=== PATIENT | female | born 1965 | race Caucasian/White ===

== ENCOUNTER 2017-08-11 02:48 | Emergency (ER) | payer BC ==
[2017-08-11 03:00] VITALS: BP 139/88
--- NOTE | 2017-08-11 03:40 | EDM.PDOC ---
ED HPI GENERAL MEDICAL PROBLEM - General Chief Complaint: Abdominal Pain Stated Complaint: UPPER ABD PAIN Time Seen by Provider: 08/11/17 03:27 Source of Information: Reports: Patient History Limitations: Reports: Respiratory Distress - History of Present Illness INITIAL COMMENTS - FREE TEXT/NARRATIVE: 52-year-old female presents emergency department day complaint of abdominal pain , she states the pain started this evening it was very intense rates it a 10 out of 10 in epigastric region constant however now the pain has subsided she recently underwent CAT scan approximately 6 days ago which was fairly benign showed some punctate renal stones in the right pole of the kidney otherwise nothing remarkable except for large amount stool, she denies any fever no other symptoms at this time she feels she has returned to baseline and she is pain- free Upper Abdominal Pain Score (Numeric/FACES): 10 - Related Data Allergies Allergy/AdvReac Type Severity Reaction Status Date / Time chlorzoxazone Allergy Hives Verified 08/11/17 02:54 [From Parafon Forte] ciprofloxacin Allergy Swollen Verified 08/11/17 02:54 Eyes metronidazole Allergy Other Verified 08/11/17 02:54 Home Meds: Home Meds Cyclobenzaprine [Flexeril] 2.5 mg PO BEDTIME 06/24/17 [History] Levonorgestrel [Mirena] 1 each IY ASDIRECTED 06/24/17 [History] Phenazopyridine HCl [Phenazopyridine HCl] 200 mg PO ASDIRECTED 08/11/17 [History ] Past Medical History Gastrointestinal History: Reports: Irritable Bowel Syndrome Genitourinary History: Reports: Renal Calculus 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: Dysfunctional Uterine Bleeding, Endometrial Ablation, Fibroids Neurological History: Reports: Migraines Psychiatric History: Reports: Anxiety Dermatologic History: Reports: Psoriasis Other Dermatologic History: rash on arms itches fine pink - Infectious Disease History Infectious Disease History: Reports: Chicken Pox - Past Surgical History Female Surgical History: Reports: Section, Endometrial Ablation, Kidney stone extraction Social & Family History - Tobacco Use Smoking Status *Q: Former Smoker Used Tobacco, but Quit: Yes Month Tobacco Last Used: 6 yrs ago Second Hand Smoke Exposure: No - Caffeine Use Caffeine Use: Reports: Coffee - Alcohol Use Days Per Week of Alcohol Use: 0 - Recreational Drug Use Recreational Drug Use: No ED ROS GENERAL - Review of Systems Review Of Systems: See Below Constitutional: Reports: No Symptoms HEENT: Reports: No Symptoms Respiratory: Reports: No Symptoms Cardiovascular: Reports: No Symptoms GI/Abdominal: Reports: Abdominal Pain, Constipation. Denies: Nausea, Vomiting : Reports: No Symptoms Musculoskeletal: Reports: No Symptoms Skin: Reports: No Symptoms ED EXAM, GI/ABD - Physical Exam Exam: See Below Exam Limited By: No Limitations General Appearance: Alert, WD/WN, No Apparent Distress Respiratory/Chest: No Respiratory Distress GI/Abdominal Exam: Normal Bowel Sounds, Soft, Non-Tender, No Organomegaly, No Distention, No Abnormal Bruit, No Mass Course - Vital Signs Last Recorded V/S: Last Vital Signs Temp 97.5 F 08/11/17 03:01 Pulse 83 08/11/17 03:01 Resp 20 08/11/17 03:01 BP 139/88 08/11/17 03:01 Pulse Ox 100 08/11/17 03:01 - Orders/Labs/Meds Orders: Active Orders 24 hr Category Date Time Status Abdomen 1V Flat [CR] Stat Exams 08/11/17 03:33 Taken Departure - Departure Time of Disposition: 04:06 Disposition: Home, Self-Care 01 Condition: Good Clinical Impression: Functional constipation - Discharge Information Referrals: Tai Weems MD [Primary Care Provider] - Forms: ED Department Discharge Additional Instructions: Try the colonoscopy prep, Please followup with your primary care provider in 3- 5 days if not better, please call return to the emergency department with worsening of symptoms. - My Orders Last 24 Hours: My Active Orders 08/11/17 03:33 Abdomen 1V Flat [CR] Stat - Assessment/Plan Last 24 Hours: My Active Orders 08/11/17 03:33 Abdomen 1V Flat [CR] Stat Plan: Assessment Acuity = acute Site and laterality = functional constipation Etiology = probably related to recent change in diet Manifestations = intermittent abdominal pain Location of injury = Home Lab values = plain film the abdomen does show large amount stool left side official read radiology pending Plan I did review films with her she has been asymptomatic for the last hour plan is to do the colonoscopy prep she'll follow up with her primary care in 3-5 days if no improvement Patient was in agreement with the plan all questions were answered, they were instructed to return to the emergency department or call for worsening symptoms. This note was dictated using [employer] voice recognition software please call with any questions.
--- NOTE | 2017-08-11 09:36 | CR ---
Supine abdomen There is mild retained colonic stool in the right colon. There is no evidence for bowel distention. T here is an IUD centrally within the pelvis. No renal stones are seen. Impression: 1. No acute findings.
== END 2017-08-11 04:29 | disposition home or self-care (01) ==
LOC: JP.ED 02:48
DX: K59.04 Chronic idiopathic constipation (principal); K31.9 Disease of stomach and duodenum, unspecified; L40.9 Psoriasis, unspecified; Z87.891 Personal history of nicotine dependence; Z87.442 Personal history of urinary calculi; Z88.1 Allergy status to other antibiotic agents; Z88.8 Allergy status to other drugs, medicaments and biological substances
CPT/HCPCS: 74000; 74000-26; 99284

== ENCOUNTER 2018-01-18 08:22 | Emergency (ER) | payer BC ==
[2018-01-18 08:36] VITALS: BP 140/99
[2018-01-18] MEDS ORDERED: Lactated Ringers 1,000 ML IV ONE (09:03)
[2018-01-18] MEDS ORDERED: fentaNYL 100 MCG/2 ML SDV IVPUSH ONE ×2 (09:03→10:32)
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
[2018-01-18] MEDS ORDERED: Iopamidol 612 MG/ML 150 ML Bottle IV PRN (10:01)
[2018-01-18] MEDS ORDERED: Sodium Chloride 0.9% 10 ML Syringe FLUSH PRN (10:01)
--- NOTE | 2018-01-18 10:01 | CR ---
No evidence for fracture. No evidence for effusion.
[2018-01-18] MEDS ORDERED: Sodium Chloride 0.9% 80 ML IV SCH (10:15)
--- NOTE | 2018-01-18 10:15 | CR ---
Left elbow. Findings: Curvilinear radiopaque density at the medial epicondyle may be heterotopic ossification. No evidence for a joint effusion. No definitive fracture. Hypertrophic change at the olecranon as well. Right elbow: Tiny faint ossific density at the elbow joint anteriorly may be degenerative or tiny avu lsive fracture. There is no joint effusion however. Radial head is intact.
--- NOTE | 2018-01-18 10:29 | CT ---
CT chest, abdomen and pelvis Total DLP 957. Findings: Hazy density about the right upper chest subcutaneous tissues which can indicate bruising. Thoracic aorta is intact. No enlarged adenopathy. Mild emphysematous change. No focal consolidation. Tiny 2 mm pulmonary nodule near the right minor fissure axial image #53 series 4. Mildly atherosclerotic abdominal aorta. It is nonaneurysmal. Fatty infiltration of the liver. The chris er and spleen are intact. No focal fluid collections. Gallbladder within normal limits. Adrenal gland s are within normal limits. Pancreas within normal limits. No hydronephrosis. No evidence for renal c ontusion. No dilated loops of small bowel. I U D within the uterus. Normal appendix right lower quadr ant. No evidence for free air. No free air. No acute osseous abnormality. Bladder within normal limit s. No free fluid. Slight subcutaneous bruising about the pelvis as well. Impression: 1. Subcutaneous hazy density right upper chest. Slight subcutaneous bruising about the pelvis as well . This could indicate bruising. 2. Tiny pulmonary nodule right middle lobe. Recommend follow-up with Fleischner criteria. Fleischner Society Guidelines: Nodule Size (mm)*: Less than or equal to 4 Low Risk Patient (1): No followup needed (3) High Risk Patient (2): Followup CT at 12 months; if unchanged, no further followup (4) Nodule Size (mm)*: Greater than 4-6 Low Risk Patient (1): Followup CT at 12 months; if unchanged, no further followup (4) High Risk Patient (2): Initial followup CT at 6-12 months then at 18-24 months if no change (4) Nodule Size (mm)*: Greater than 6-8 Low Risk Patient (1): Initial followup CT at 6-12 months then at 18-24 months if no change High Risk Patient (2): Initial CT at 3-6 months then at 9-12 months and 24 months if no change Nodule Size (mm)*: Greater than 8 Low Risk Patient (1): Followup CT at around 3, 9 and 24 months, dynamic contrast-enhanced CT, PET and /or biopsy High Risk Patient (2): Same as for low risk patient (4) Note: Newly detected indeterminate nodule in persons 35 years of age or older. *Average length and width. (1) Minimal or absent history of smoking and of other known risk factors. (2) History of smoking or of other known risk factors. (3) The risk of malignancy in this category (Less than 1%) is substantially less than that in a basel ine CT scan of an asymptomatic smoker. (4) Non-solid (ground-glass) or partly solid nodules may require longer followup to exclude indolent adenocarcinoma.
--- NOTE | 2018-01-18 10:57 | CR ---
No evidence for fracture. No oblique view obtained. If symptoms persist recommend radiographic follow -up. Limitations of the scaphoid on the AP view.
== END 2018-01-18 11:49 | disposition home or self-care (01) ==
LOC: JP.ED 08:22
DX: S50.02XA Contusion of left elbow, initial encounter (principal); S50.01XA Contusion of right elbow, initial encounter; S60.212A Contusion of left wrist, initial encounter; S80.01XA Contusion of right knee, initial encounter; S30.1XXA Contusion of abdominal wall, initial encounter; Z88.1 Allergy status to other antibiotic agents; Z88.8 Allergy status to other drugs, medicaments and biological substances; Z87.891 Personal history of nicotine dependence; V49.40XA Driver injured in collision with unspecified motor vehicles in traffic accident, initial encounter
CPT/HCPCS: 36415; 71260; 73080; 73100; 73560; 74177; 80048; 85025; 96361; 96374; 96376; 99284; J3010; J7030; J7050; J7120

== ENCOUNTER 2021-09-14 22:50 | Observation (INO) | payer BC ==
[2021-09-14] MEDS ORDERED: HYDROmorphone 0.5 MG/0.5 ML Syringe IVPUSH ONE (23:19)
[2021-09-14] MEDS ORDERED: Ondansetron 4 MG/2 ML SDV IVPUSH ONE (23:19)
[2021-09-14] MEDS ORDERED: Sodium Chloride 0.9% 1,000 ML IV SCH (23:30)
--- NOTE | 2021-09-14 23:32 | EDM.PDOC ---
ED HPI GENERAL MEDICAL PROBLEM - General Chief Complaint: Abdominal Pain Stated Complaint: STOMACH PAIN Time Seen by Provider: 09/14/21 23:15 Source of Information: Reports: Patient, Family History Limitations: Reports: No Limitations - History of Present Illness INITIAL COMMENTS - FREE TEXT/NARRATIVE: 52-year-old female who who is usually generally healthy, presents with 4 hours of intense upper abdominal pain after eating. She feels bloated, has developed peritoneal irritation and the pain is 10 out of 10. There is no significant radiation to her back, no significant nausea or vomiting. She has not had this pain in the past. Her only past surgery was a section. She does have a history of H. pylori but a recent test for this was negative. She takes omepr azole for chronic reflux. Onset: Sudden Duration: Hour(s): (4 hours ago) Location: Reports: Abdomen (Upper abdomen) Severity: Severe Worsens with: Reports: Movement Associated Symptoms: Reports: No Other Symptoms Bilateral Upper Abdomen Pain Score (Numeric/FACES): 10 - Related Data Allergies Allergy/AdvReac Type Severity Reaction Status Date / Time chlorzoxazone Allergy Hives Verified 09/15/21 00:54 [From Stonebrianna Dick] ciprofloxacin Allergy Swollen Verified 09/15/21 00:54 Eyes metronidazole Allergy Other Verified 09/15/21 00:54 nickel Allergy Rash Verified 09/15/21 00:54 Home Meds: Home Meds Venlafaxine [Effexor] 225 mg PO DAILY 09/28/18 [History] Albuterol Sulfate [Proair Hfa] 1 - 2 puff INH ASDIRECTED PRN 12/29/19 [History] Amitriptyline [Elavil] 25 mg PO QPM PRN 12/29/19 [History] Fluticasone Propion/Salmeterol [Advair Hfa 230-21 Mcg Inhaler] 2 puff INH BID 12/29/19 [History] valACYclovir [Valtrex] 2,000 mg PO ASDIRECTED PRN 12/29/19 [History] Omeprazole 1 tab PO DAILY 09/14/21 [History] gemfibroziL [Gemfibrozil] 1 tab PO ACBREAKFAST 09/14/21 [History] Past Medical History Respiratory History: Reports: Asthma Gastrointestinal History: Reports: Chronic Constipation, Chronic Diarrhea, Irritable Bowel Syndrome Genitourinary History: Reports: Renal Calculus [employer] History: Reports: Dysfunctional Uterine Bleeding, Endometrial Ablation, Fibroids, Neurological History: Reports: Migraines Psychiatric History: Reports: Anxiety Dermatologic History: Reports: Psoriasis Other Dermatologic History: rash on arms itches fine pink - Infectious Disease History Infectious Disease History: Reports: Chicken Pox, Measles - Past Surgical History HEENT Surgical History: Reports: Naso-Sinus Surgery GI Surgical History: Reports: None Female Surgical History: Reports: Section, D&C, Endometrial Ablation, Kidney stone extraction, LEEP Other Female Surgeries/Procedures: uterine ablation Social & Family History - Family History HEENT: Reports: Cataract GI: Reports: Hiatal Hernia, Irritable Bowel Syndrome, Other (See Below) Other GI Family History: EGD with dil Oncologic: Reports: Bladder, Brain - Tobacco Use Tobacco Use Status *Q: Former Tobacco User Used Tobacco, but Quit: Yes Month/Year Tobacco Last Used: 10/2010 - Caffeine Use Caffeine Use: Reports: Coffee - Recreational Drug Use Recreational Drug Use: No ED ROS GENERAL - Review of Systems Review Of Systems: See Below Constitutional: Reports: Malaise. Denies: Fever, Chills HEENT: Reports: No Symptoms Respiratory: Reports: No Symptoms Cardiovascular: Reports: No Symptoms GI/Abdominal: Reports: Abdominal Pain. Denies: Constipation, Diarrhea, Vomiting : Reports: No Symptoms Skin: Reports: No Symptoms Neurological: Reports: No Symptoms Psychiatric: Reports: No Symptoms ED EXAM, GI/ABD - Physical Exam Exam: See Below Exam Limited By: No Limitations General Appearance: Alert, Severe Distress Eyes: Bilateral: Normal Appearance (No jaundice) Respiratory/Chest: No Respiratory Distress, Lungs Clear Cardiovascular: Regular Rate, Rhythm. No: Tachycardia GI/Abdominal Exam: Other (Bowel sounds are high-pitched but present, abdomen feels distended and she has intense pain to palpation across the upper and central abdomen) Extremities: Normal Inspection Neurological: Alert, Oriented Psychiatric: Anxious Skin Exam: Warm, Dry Course - Vital Signs Last Recorded V/S: Last Vital Signs Temp 95.2 F L 09/15/21 10:19 Pulse 96 09/15/21 13:00 Resp 16 09/15/21 13:00 BP 123/73 09/15/21 13:00 Pulse Ox 96 09/15/21 13:00 - Orders/Labs/Meds Orders: Active Orders 24 hr Category Date Time Status Admission Diagnosis [ADT] Routine ADT 09/15/21 00:21 Ordered Labs: Laboratory Tests 09/14/21 09/14/21 Range/Units 23:25 23:25 WBC 6.4 (4.5-11.0) K/uL RBC 4.67 (3.30-5.50) M/uL Hgb 13.3 (12.0-15.0) g/dL Hct 40.9 (36.0-48.0) % MCV 88 (80-98) fL MCH 29 (27-31) pg MCHC 33 (32-36) % Plt Count 284 (150-400) K/uL Neut % (Auto) 47.1 (36-66) % Lymph % (Auto) 40.6 (24-44) % Morris % (Auto) 6.9 H (2-6) % Eos % (Auto) 5.2 H (2-4) % Baso % (Auto) 0.2 (0-1) % Sodium 145 (140-148) mmol/L Potassium 3.9 (3.6-5.2) mmol/L Chloride 104 (100-108) mmol/L Carbon Dioxide 30 (21-32) mmol/L Anion Gap 11.5 (5.0-14.0) mmol/L BUN 18 (7-18) mg/dL Creatinine 0.9 (0.6-1.0) mg/dL Est Cr Clr Drug Dosing 69.49 mL/min Estimated GFR (MDRD) > 60 (>60) Glucose 160 H (74-106) mg/dL Calcium 9.4 (8.5-10.1) mg/dL Total Bilirubin 0.2 (0.2-1.0) mg/dL AST 26 (15-37) U/L ALT 44 (12-78) U/L Alkaline Phosphatase 62 (46-116) U/L Total Protein 7.9 (6.4-8.2) g/dL Albumin 4.4 (3.4-5.0) g/dL Globulin 3.5 (2.3-3.5) g/dL Albumin/Globulin Ratio 1.3 (1.2-2.2) Lipase 180 (73-393) U/L Meds: Medications Discontinued Medications Generic Name Dose Route Start Last Admin Trade Name Freq PRN Reason Stop Dose Admin Acetaminophen 1,000 mg 09/15/21 10:30 09/15/21 13:10 Acetaminophen 500 Mg Tab PO 09/15/21 16:31 1,000 mg Q6H BELLA Administration Acetaminophen 1,000 mg 09/15/21 22:30 Acetaminophen 500 Mg Tab PO Q6H PRN PAIN Bupivacaine HCl/Epinephrine Bitart Confirm 09/15/21 07:10 Bupivacaine 0.5%/Epinephrine 1:200,000 50 Ml Mdv Administered 09/15/21 07:11 Dose 50 ml .ROUTE .STK-MED ONE Bupivacaine HCl/Epinephrine Bitart 30 ml 09/15/21 09:23 09/15/21 09:23 Bupivacaine 0.5%/Epinephrine 1:200,000 30 Ml Sdv INJECT 09/15/21 09:24 30 ml .STK-MED ONE Administration Ropivacaine 48 ml/ 0 ml 09/15/21 08:00 09/15/21 09:22 Dexamethasone 8 mg/ NERVRT 80 syringe Epinephrine HCl 0.4 mg/ Sodium ASDIRECTED BELLA Administration Chloride 29.6 ml Dexamethasone Confirm 09/15/21 06:45 Dexamethasone 4 Mg/Ml Sdv Administered 09/15/21 06:46 Dose 4 mg .ROUTE .STK-MED ONE Fentanyl 50 mcg 09/15/21 00:49 09/15/21 01:13 Fentanyl 100 Mcg/2 Ml Sdv IVPUSH 50 mcg Q2H PRN Administration Pain (severe 7-10) Fentanyl Confirm 09/15/21 01:12 09/15/21 01:16 Fentanyl 100 Mcg/2 Ml Sdv Administered 09/15/21 01:13 Not Given Dose 100 mcg .ROUTE .STK-MED ONE Fentanyl Confirm 09/15/21 06:45 Fentanyl 250 Mcg/5 Ml Sdv Administered 09/15/21 06:46 Dose 250 mcg .ROUTE .STK-MED ONE Fentanyl Confirm 09/15/21 09:02 Fentanyl 100 Mcg/2 Ml Sdv Administered 09/15/21 09:03 Dose 100 mcg .ROUTE .STK-MED ONE Glycopyrrolate Confirm 09/15/21 06:45 Glycopyrrolate 0.2 Mg/Ml 5 Ml Mdv Administered 09/15/21 06:46 Dose 1 mg .ROUTE .STK-MED ONE Hydromorphone HCl 0.5 mg 09/14/21 23:19 09/14/21 23:32 Hydromorphone 0.5 Mg/0.5 Ml Syringe IVPUSH 09/14/21 23:20 0.5 mg ONETIME ONE Administration Hydromorphone HCl 0.5 mg 09/15/21 11:00 09/15/21 10:23 Hydromorphone 0.5 Mg/0.5 Ml Syringe IVPUSH 0.5 mg Q2H PRN Administration MODERATE PAIN Hydromorphone HCl 1 mg 09/15/21 11:00 Hydromorphone 1 Mg/Ml Syringe IV Q2H PRN SEVERE PAIN Hydromorphone HCl 2 mg 09/15/21 10:19 09/15/21 13:10 Hydromorphone 2 Mg Tab PO 2 mg Q4H PRN Administration PAIN Sodium Chloride 1,000 mls @ 500 mls/hr 09/14/21 23:30 09/14/21 23:37 Normal Saline IV 500 mls/hr ASDIRECTED BELLA Administration Ampicillin Sodium/Sulbactam 100 mls @ 200 mls/hr 09/15/21 00:52 09/15/21 01:22 Sodium 3 gm/ Sodium Chloride IV 09/15/21 01:21 200 mls/hr ONETIME ONE Administration Lactated Ringer's 1,000 mls @ 200 mls/hr 09/15/21 01:00 09/15/21 05:25 Ringers, Lactated IV 200 mls/hr ASDIRECTED BELAL Administration Ampicillin Sodium/Sulbactam 100 mls @ 200 mls/hr 09/15/21 08:00 09/15/21 08:10 Sodium 3 gm/ Sodium Chloride IV 09/15/21 08:29 200 mls/hr ONCALL ONE Administration Dextrose/Lactated Ringer's 1,000 mls @ 100 mls/hr 09/15/21 10:30 Dextrose 5%-Lactated Ringers IV ASDIRECTED BELLA Ampicillin Sodium/Sulbactam 100 mls @ 200 mls/hr 09/15/21 14:30 09/15/21 15:19 Sodium 3 gm/ Sodium Chloride IV 09/15/21 14:59 200 mls/hr ONETIME ONE Administration Ketorolac Tromethamine Confirm 09/15/21 06:45 Ketorolac 30 Mg/Ml Sdv Administered 09/15/21 06:46 Dose 30 mg .ROUTE .STK-MED ONE Ketorolac Tromethamine Confirm 09/15/21 08:54 Ketorolac 30 Mg/Ml Sdv Administered 09/15/21 08:55 Dose 30 mg .ROUTE .STK-MED ONE Metoclopramide HCl Confirm 09/14/21 23:49 09/15/21 01:07 Metoclopramide 10 Mg/2 Ml Sdv Administered 09/14/21 23:50 Not Given Dose 10 mg .ROUTE .STK-MED ONE Metoclopramide HCl 10 mg 09/14/21 23:57 09/14/21 23:59 Metoclopramide 10 Mg/2 Ml Sdv IVPUSH 09/14/21 23:58 10 mg ONETIME ONE Administration Metoclopramide HCl 5 mg 09/15/21 00:50 Metoclopramide 10 Mg/2 Ml Sdv IVPUSH Q3H PRN Nausea Midazolam HCl Confirm 09/15/21 06:45 Midazolam 1 Mg/Ml 2 Ml Sdv Administered 09/15/21 06:46 Dose 2 mg .ROUTE .STK-MED ONE Neostigmine Methylsulfate Confirm 09/15/21 06:45 Neostigmine Methylsulfate 1 Mg/Ml 5 Ml Syringe Administered 09/15/21 06:46 Dose 5 mg .ROUTE .STK-MED ONE Ondansetron HCl 4 mg 09/14/21 23:19 09/14/21 23:32 Ondansetron 4 Mg/2 Ml Sdv IVPUSH 09/14/21 23:20 4 mg ONETIME ONE Administration Ondansetron HCl Confirm 09/15/21 06:45 Ondansetron 4 Mg/2 Ml Sdv Administered 09/15/21 06:46 Dose 4 mg .ROUTE .STK-MED ONE Ondansetron HCl 4 mg 09/15/21 11:00 Ondansetron 4 Mg/2 Ml Sdv IVPUSH Q4H PRN Nausea/Vomiting Pantoprazole Sodium 40 mg 09/15/21 11:00 09/15/21 13:12 Pantoprazole 40 Mg Vial IVPUSH 40 mg Q24H BELLA Administration Propofol Confirm 09/15/21 06:45 Propofol 200 Mg/20 Ml Sdv Administered 09/15/21 06:46 Dose 200 mg .ROUTE .STK-MED ONE Rocuronium [place] Confirm 09/15/21 06:45 Rocuronium 50 Mg/5 Ml Vial Administered 09/15/21 06:46 Dose 50 mg .ROUTE .STK-MED ONE Rocuronium [place] Confirm 09/15/21 08:51 Rocuronium 50 Mg/5 Ml Vial Administered 09/15/21 08:52 Dose 50 mg .ROUTE .STK-MED ONE - Re-Assessments/Exams Free Text/Narrative Re-Assessment/Exam: 09/14/21 23:34 IV was started, CBC CMP and lipase were obtained and she was given 0.5 mg of IV Dilaudid and 4 mg of IV Zofran. An urgent CT scan of the abdomen without contrast was ordered to rule out bowel obstruction or perforation. 09/15/21 00:16 Patient's pain was only moderately controlled with the Dilaudid and she did develop some additional nausea requiring 10 mg of IV Reglan. CT scan had the results below IMPRESSION: Limping seen to explain the patient`s abdominal pain. No sign of any bowel obstruction or ileus. No sign of any inflammatory process involving the bowel no sign of any abnormality of the pancreas or urinary system. CT of the abdomen shows moderate cholelithiasis with no sign of acute cholecystitis CT of the pelvis shows mild sigmoid diverticulosis with no sign of diverticulitis After the CT scan the patient's pain was starting to improve but she still was very tender over the right upper quadrant with a positive Marroquin sign. Findings were discussed with Dr. Moore, he agreed to admit the patient and evaluate for possible cholecystectomy tomorrow morning. She will be given 3 g of IV Unasyn and may need a formal ultrasound in the morning if symptoms improve, if no significant improvement she may need cholecystectomy. Departure - Departure Time of Disposition: 00:44 Disposition: Admitted As Inpatient 68 Clinical Impression: Abdominal pain Qualifiers: Abdominal location: upper abdomen, unspecified Qualified Code(s): R10.10 - Upper abdominal pain, unspecified Cholelithiasis Qualifiers: Cholelithiasis location: gallbladder Cholecystitis presence: without cholecystitis Biliary obstruction: without biliary obstruction Qualified Code(s): K80.20 - Calculus of gallbladder without cholecystitis without obstruction - Discharge Information Sepsis Event Note (ED) - Evaluation Sepsis Screening Result: No Definite Risk
[2021-09-14] MEDS ORDERED: Metoclopramide 10 MG/2 ML SDV ONE (23:49)
--- NOTE | 2021-09-14 23:53 | CRLCT ---
For Patients: As a result of the Century Cures Act, medical imaging exams and procedure reports are released immediately into your electronic medical record. You may view this report before your referring provider. If you have questions, please contact your health care provider. INDICATION: Abdominal pain beginning today at 1900 hours. COMPARISON: None available TECHNIQUE: CT examination of the abdomen and pelvis was performed without contrast enhancement using 2 mm thick axial sections from the lung bases through the pubic symphysis. Oral contrast was not administered. Please note that all CT scans at this facility use dose modulation, iterative reconstruction, and/or weight-based dosing when appropriate to reduce radiation dose to as low as reasonably achievable. FINDINGS: In the abdomen, the unenhanced liver, spleen, pancreas, and adrenals are normal in appearance. The unenhanced kidneys are normal in appearance. There is moderate cholelithiasis, with several dependent calcified and non calcified gallstones in the gallbladder. There is no sign of gallbladder wall thickening or pericholecystic fluid. The abdominal aorta is normal in caliber with no sign of dilatation. There is no sign of retroperitoneal mass or adenopathy. The stomach, loops of small bowel, and colon in the abdomen are normal in appearance. In the pelvis, the appendix is normal in appearance with no sign of inflammatory process. There is mild sigmoid diverticulosis without evidence of diverticulitis. The loops of small bowel and colon in the pelvis are otherwise normal in appearance. The uterus and adnexal regions are normal in appearance. The urinary bladder is normal in appearance. There is no sign of pelvic or inguinal mass or adenopathy. There is no sign of free air or free fluid in the abdomen or pelvis. The lung bases are clear. There is moderate L5-S1 disc degenerative disease. There is mild scoliosis of the lumbar spine convex towards the left. IMPRESSION: Limping seen to explain the patient`s abdominal pain. No sign of any bowel obstruction or ileus. No sign of any inflammatory process involving the bowel no sign of any abnormality of the pancreas or urinary system. CT of the abdomen shows moderate cholelithiasis with no sign of acute cholecystitis CT of the pelvis shows mild sigmoid diverticulosis with no sign of diverticulitis Please note that all CT scans at this facility use dose modulation, iterative reconstruction, and/or weight-based dosing when appropriate to reduce radiation dose to as low as reasonably achievable. Dictated by Bhupendra Viramontes MD @ 09/14/2021 11:52:50 PM (Electronically Signed)
[2021-09-14] MEDS ORDERED: Metoclopramide 10 MG/2 ML SDV IVPUSH ONE (23:57)
[2021-09-15] MEDS ORDERED: fentaNYL 100 MCG/2 ML SDV IVPUSH PRN (00:49)
[2021-09-15] MEDS ORDERED: Metoclopramide 10 MG/2 ML SDV IVPUSH PRN (00:50)
[2021-09-15] MEDS ORDERED: Ampicillin/Sulbactam Na 3 GM in Sodium Chloride 0.9% 100 ML IV ONE ×3 (00:52→14:30)
[2021-09-15] MEDS ORDERED: fentaNYL 100 MCG/2 ML SDV ONE ×2 (01:12→09:02)
[2021-09-15] MEDS: Lactated Ringers 1,000 ML IV SCH ×2 (01:14→05:25)
[2021-09-15 06:11] LABS: CORONAVIRUS COVID-19 NAA NEGATIVE (NEGATIVE)
[2021-09-15] MEDS ORDERED: Ketorolac 30 MG/ML SDV ONE ×2 (06:45→08:54)
[2021-09-15] MEDS ORDERED: Ondansetron 4 MG/2 ML SDV ONE (06:45)
[2021-09-15] MEDS ORDERED: Propofol 200 MG/20 ML SDV ONE (06:45)
[2021-09-15] MEDS ORDERED: Glycopyrrolate 0.2 MG/ML 5 ML MDV ONE (06:45)
[2021-09-15] MEDS ORDERED: Dexamethasone 4 MG/ML SDV ONE (06:45)
[2021-09-15] MEDS ORDERED: Neostigmine Methylsulfate 1 MG/ML 5 ML Syringe ONE (06:45)
[2021-09-15] MEDS ORDERED: fentaNYL 250 MCG/5 ML SDV ONE (06:45)
[2021-09-15] MEDS ORDERED: Rocuronium 50 MG/5 ML Vial ONE ×2 (06:45→08:51)
[2021-09-15] MEDS ORDERED: Midazolam 1 MG/ML 2 ML SDV ONE (06:45)
[2021-09-15] MEDS ORDERED: Bupivacaine 0.5%/EPINEPHrine 1:200,000 50 ML MDV ONE (07:10)
[2021-09-15] MEDS ORDERED: Bupivacaine 0.5%/EPINEPHrine 1:200,000 30 ML SDV INJECT ONE (09:23)
[2021-09-15] MEDS ORDERED: HYDROmorphone 2 MG Tab PO PRN (10:19)
[2021-09-15] MEDS ORDERED: Acetaminophen 500 MG Tab PO SCH (10:30)
[2021-09-15] MEDS ORDERED: Dextrose 5%-Lactated Ringers 1,000 ML IV SCH (10:30)
[2021-09-15] MEDS ORDERED: Ondansetron 4 MG/2 ML SDV IVPUSH PRN (11:00)
[2021-09-15] MEDS ORDERED: Pantoprazole 40 MG Vial IVPUSH SCH (11:00)
[2021-09-15] MEDS ORDERED: HYDROmorphone 1 MG/ML Syringe IV PRN (11:00)
[2021-09-15] MEDS ORDERED: HYDROmorphone 0.5 MG/0.5 ML Syringe IVPUSH PRN (11:00)
[2021-09-15 13:20] VITALS: BP 123/73; PULSE 96
[2021-09-15] MEDS ORDERED: Acetaminophen 500 MG Tab PO PRN (22:30)
--- NOTE | 2021-09-17 10:21 | OR ---
DATE OF PROCEDURE: 09/15/2021 SURGEON: Des Moore MD PREOPERATIVE DIAGNOSIS: Subacute cholecystitis and cholelithiasis. POSTOPERATIVE DIAGNOSES: 1. Subacute cholecystitis and cholelithiasis. 2. Incarcerated umbilical hernia. OPERATIVE PROCEDURE: Diagnostic laparoscopy with: 1. Cholecystectomy. 2. Repair of incarcerated incisional hernia. ANESTHESIA: General. INDICATION FOR PROCEDURE: This is a 56-year-old female presenting with acute biliary colic overnight, workup showed a somewhat thickened gallbladder wall along with cholelithiasis and the patient to undergo laparoscopic cholecystectomy. Potential risks of procedure including bleeding, infection, injury to viscera in the area, possible migration of stones to common bile duct requiring additional procedures were gone over and the patient wishes to proceed. DETAILS OF PROCEDURE: The patient was taken to the operating room where after general endotracheal anesthesia was induced, the abdomen was prepped and draped. A transverse epigastric incision was made and peritoneal cavity entered under direct vision with an Optiview trocar, inflated to 15 mmHg pressure with CO2. Laparoscope was reinserted. No underlying trocar insertion site injuries were seen. Following this, a transverse subumbilical incision was made. Patient was noted at this point to have incarcerated umbilical hernia. This was fairly small and contained some preperitoneal fat. The 12 mm trocar was then placed through the hernia defect, which effectively reduced the area of the preperitoneal fat that was incarcerated within the hernia. One additional trocar was placed in the right subcostal area and bilateral transversus abdominis plane blocks were then placed. The gallbladder was noted to be markedly edematous and distended, and the gallbladder was retracted anteriorly and laterally, and dissection around the gallbladder neck and cystic duct junction was initiated. Once the gallbladder neck and cystic duct junction was well- delineated both artery and duct, both of these structures were taken with SHAD johan. One additional branch of the artery was then subsequently taken with some clips and Harmonic Scalpel above that. Gallbladder was then removed off the gallbladder bed using Harmonic scalpel and delivered through the epigastric trocar site. It contained multitude of small and large stones with the largest stone which appeared to be impacted within the gallbladder neck. The area of dissection was inspected, no bleeding or bile leaks were evident . Camera was then brought back up to the epigastric site and the umbilical trocar was removed. The umbilical hernia was then closed with laparoscopic suture passer and closing this with a transverse orientation with some 0 Vicryl sutures. Upon completion of that, the epigastric trocar was removed, fascia at that level was closed with 0 Vicryl stitch and the skin at each incision was closed with 4-0 Vicryl skin stitch. Wound was then anesthetized with 1% lidocaine mixed with Marcaine. The patient tolerated the procedure well. She was taken to the recovery room in satisfactory condition. Des Moore MD /[id number]
--- NOTE | 2021-09-17 11:05 | DISCH ---
FINAL DIAGNOSES: 1. Subacute cholecystitis and cholelithiasis. 2. Incarcerated umbilical hernia. 3. History of kidney stones. 4. History gastroesophageal reflux disease. OPERATIVE PROCEDURE: Done on 09/15, diagnostic laparoscopy with: 1. Cholecystectomy. 2. Repair of incarcerated umbilical hernia. SUMMARY: This is a 56-year-old female presenting with severe abdominal pain. Workup was consistent with biliary colic, and the CT scan showed gallbladder wall thickening along with cholelithiasis, and the patient was clinically quite tender over the gallbladder at the time of admission. She was placed in the hospital overnight and underwent a laparoscopic cholecystectomy along with repair of an incarcerated umbilical hernia. Postoperatively, no major problems were noted. She was discharged home with Tylenol 1 g q.6 hours p.r.n. pain, ibuprofen 600 mg q.6 hours p.r.n. pain, and Dilaudid 2 mg p.o. q.4 hours p.r.n. pain #12. Otherwise, she will be continued on the usual medications. Follow up with Dr. Moore at [facility] on 09/25/2021. /[id number]
== END 2021-09-15 16:29 | disposition home or self-care (01) ==
LOC: JP.ED 22:50 → JP.MS 09-15 00:22 → UNDOADMIN 09-15 00:22 → JP.MS 09-15 00:27 → UNDODISIN 09-15 16:25
PROVIDERS: ADMIT Surgery; ATTEND Surgery
DX: K80.12 Calculus of gallbladder with acute and chronic cholecystitis without obstruction (principal); K43.0 Incisional hernia with obstruction, without gangrene; K21.9 Gastro-esophageal reflux disease without esophagitis; J45.909 Unspecified asthma, uncomplicated; G43.909 Migraine, unspecified, not intractable, without status migrainosus; F41.9 Anxiety disorder, unspecified; Z98.890 Other specified postprocedural states; Z87.891 Personal history of nicotine dependence; Z01.812 Encounter for preprocedural laboratory examination; Z20.822 Contact with and (suspected) exposure to COVID-19; Z88.8 Allergy status to other drugs, medicaments and biological substances; Z79.899 Other long term (current) drug therapy
CPT/HCPCS: 0241U; 36415; 47562; 74176; 80053; 83690; 85025; 87635; 88304; 96374; 96375; 99285; A9270; C9113; J0171; J0295; J1100; J1170; J1885; J2250; J2405; J2704; J2710; J2765; J2795; J3010; J3490; J7030; J7120; U0002

== ENCOUNTER 2023-07-24 00:20 | Emergency (ER) | payer BC, OTHER ==
[2023-07-24] MEDS ORDERED: Ketorolac 30 MG/ML SDV IM ONE (00:28)
[2023-07-24 00:39] VITALS: BP 154/95; PULSE 72
[2023-07-24 00:45] LABS: AMORPHOUS SEDIMENT,URINE NOT SEEN; APPEARANCE,URINE CLOUDY (CLEAR); BACTERIA,URINE FEW; BILIRUBIN,URINE NEGATIVE (NEGATIVE); COLOR,URINE RED (YELLOW); EPITHELIAL CELLS,URINE FEW; GLUCOSE,URINE NEGATIVE (NEGATIVE); KETONES,URINE NEGATIVE (NEGATIVE); LEUKOCYTE ESTERASE,URINE NEGATIVE (NEGATIVE); MUCUS,URINE RARE; NITRITE,URINE NEGATIVE (NEGATIVE); OCCULT BLOOD,URINE LARGE (NEGATIVE); PROTEIN,URINE NEGATIVE (NEGATIVE); RBC,URINE 75-100 (0-5); UROBILINOGEN,URINE 0.2 EU/dL (0.2-1.0); WBC,URINE 0-5 (0-5)
[2023-07-24] MEDS ORDERED: Tamsulosin 0.4 MG Cap.ER PO ONE (01:09)
== END 2023-07-24 01:23 | disposition home or self-care (01) ==
LOC: JP.ED 00:20
DX: N13.2 Hydronephrosis with renal and ureteral calculous obstruction (principal); R31.0 Gross hematuria; J45.909 Unspecified asthma, uncomplicated; Z98.890 Other specified postprocedural states; Z88.8 Allergy status to other drugs, medicaments and biological substances; Z88.1 Allergy status to other antibiotic agents; Z91.048 Other nonmedicinal substance allergy status; Z79.899 Other long term (current) drug therapy
CPT/HCPCS: 74176; 81001; 96372; 99284; A9270; J1885; 99283

== ENCOUNTER 2024-05-17 23:36 | Emergency (ER) | payer BC ==
[2024-05-17 23:59] LABS: BASOPHILS PERCENT AUTO 0.3 % (0.1-1.3); EOSINOPHILS ABSOLUTE AUTO 0.62 K/uL (0.00-0.40); EOSINOPHILS PERCENT AUTO 10.2 % (0.0-5.4); HEMATOCRIT 38.7 % (34.3-46.0); HEMOGLOBIN 13.3 g/dL (11.2-15.5); IMMATURE GRAN PERCENT AUTO 0.2 % (0.0-0.7); LYMPHOCYTES ABSOLUTE AUTO 2.82 K/uL (0.8-3.3); LYMPHOCYTES PERCENT AUTO 46.5 % (11.4-47.7); MEAN CORPUSCULAR HEMOGLOBIN 28.5 pg (31.6-35.5); MEAN CORPUSCULAR HGB CONC 34.4 g/dL (31.6-35.5); MEAN CORPUSCULAR VOLUME 82.9 fL (81.4-99.0); MONOCYTES PERCENT AUTO 6.6 % (3.3-12.6); NEUTROPHILS ABSOLUTE AUTO 2.19 K/uL (1.0-7.6); NEUTROPHILS PERCENT AUTO 36.2 % (40.0-78.1); PLATELET COUNT,PLT 301 K/uL (130-375); RED BLOOD CELL COUNT 4.67 M/uL (3.77-5.24); WHITE BLOOD CELL COUNT,WBC 6.1 K/uL (3.2-11.0)
[2024-05-18] LABS: BASOPHILS ABSOLUTE AUTO 0.02 K/uL (0.00-0.10); IMMATURE GRAN ABSOLUTE AUTO 0.01 K/uL (0.00-0.23)
[2024-05-18 00:04] VITALS: BP 136/78; PULSE 62
[2024-05-18] MEDS: Ketorolac 30 MG/ML SDV IVPUSH ONE (00:05)
[2024-05-18 00:24] LABS: ANION GAP 14.3 mmol/L (5.0-14.0); CALCIUM 9.3 mg/dL (8.5-10.1); EST CRCL DRUG DOSING (CG) 61.09 mL/min; POTASSIUM,K 3.3 mmol/L (3.6-5.2)
[2024-05-18 00:29] LABS: COLOR,URINE ORANGE (YELLOW)
[2024-05-18 00:30] LABS: AMORPHOUS SEDIMENT,URINE NOT SEEN; APPEARANCE,URINE SLIGHTLY CLOUDY (CLEAR); BACTERIA,URINE FEW; EPITHELIAL CELLS,URINE FEW; MUCUS,URINE FEW; RBC,URINE 20-30 (0-5); WBC,URINE 0-5 (0-5)
== END 2024-05-18 01:08 | disposition home or self-care (01) ==
LOC: JP.ED 23:36
DX: N13.2 Hydronephrosis with renal and ureteral calculous obstruction (principal); J45.909 Unspecified asthma, uncomplicated; Z86.16 Personal history of COVID-19; Z90.49 Acquired absence of other specified parts of digestive tract; Z79.51 Long term (current) use of inhaled steroids; Z79.899 Other long term (current) drug therapy; Z88.1 Allergy status to other antibiotic agents; Z91.048 Other nonmedicinal substance allergy status; Z88.6 Allergy status to analgesic agent
CPT/HCPCS: 36415; 74176; 80048; 81001; 85025; 96374; 99284; J1885